=== PATIENT | female | born 1965 | race African-American/Black ===

== ENCOUNTER 2016-06-18 21:35 | Emergency (ER) | payer OTHER ==
[2016-06-18 21:45] VITALS: BP 149/92
--- NOTE | 2016-06-18 22:05 | PROVIDER DOCUMENTATION ---
HPI-Musculoskeletal Pain/Inj - GENERAL Source: patient - HX OF PRESENT ILLNESS-MUSKULOSKELTAL Quality of Pain: reports: aching Severity in ED: moderate Onset/Duration: this afternoon Timing: still present Modifying Factors: improves with: nothing Any recent injury?: No Locality of Occurance: Home Similar Symptoms Previously?: Yes - LOWER EXTREMITY PAIN/INJURY Lower Extremities Pain: knee: left Associated Symptoms: reports: denies symptoms <Amy Diaz - Last Filed: 06/18/16 22:29> <Truman Cameron - Last Filed: 06/18/16 22:32> - GENERAL Chief Complaint: Extremity Pain Stated Complaint: BLOOD CLOT SX IN LEG Time Seen by Provider: 06/18/16 21:53 - HX OF PRESENT ILLNESS-MUSKULOSKELTAL Nature of Presenting Problem: 50 Y/O F presents to ED with extremity pain. Pt c/o of left leg pain in the back of her knee stated that she has a hx of blood clots. Stated last September she was hospitalized with a blood clot in her leg that broke off and traveled to her lung. States that she drove to [place] 2 weeks ago. (Amy Diaz) Review of Systems - Adult - REVIEW OF SYSTEMS - ADULT Constitutional: denies: chills, fever Eyes: reports: no symptoms reported Ears, Nose, Mouth & Throat: reports: no symptoms reported Cardiovascular: reports: no symptoms reported Respiratory: reports: no symptoms reported Gastrointestinal: denies: abdominal pain, diarrhea, nausea, vomiting Genitourinary: reports: no symptoms reported Musculoskeletal: reports: muscle aches. denies: back pain Integumentary: reports: no symptoms reported Neurological: reports: no symptoms reported Psychiatric: reports: no symptoms reported Endocrine: reports: no symptoms reported Hematologic/Lymphatic: reports: no symptoms reported Allergic/Immunologic: reports: no symptoms reported All Other Systems: Reviewed and Negative <Amy Diaz - Last Filed: 06/18/16 22:29> Past History - Adult - PAST MEDICAL HISTORY-ADULT Review of Records: reports: Old Records Reviewed, Nursing Assessment Review, Medications Reviewed, Social history reviewed & non-contributory. Major Childhood Illnesses: reports: denies history Cardiovascular: reports: HTN Respiratory: reports: denies history Gastrointestinal: reports: denies history Obstetrical/Gynecological: reports: denies history Genitourinary: reports: denies history Musculoskeletal: reports: denies history Neurological: reports: headaches/migraines, Seizures/Epilepsy (hx) Endocrine/Immune: reports: denies history Other Conditions: reports: denies history - PRIOR SURGERIES/PROCEDURES Surgical/Procedure History: reports: hysterectomy, gastric bypass - IMMUNIZATION STATUS Childhood Immunizations: See Nurse Assessment Flu Vaccine: See Nurse Assessment - FAMILY HISTORY Family History: reviewed, not pertinent - SOCIAL HISTORY Smoking: non-smoker Substance Use: none/never Alcohol Use Frequency: never Living Situation: family <Amy Diaz - Last Filed: 06/18/16 22:29> Physical Exam-Injury Related - Physical Exam-Injury Related General Appearance: appears well, alert, no apparent distress Eyes: PERRL/EOMI, pink conjunctivae, fundi clear, no AV nicking Head, Ears, Nose, Mouth & Throat: normocephalic/atraumatic, moist mucous membranes, normal ENT inspection, TMs normal, pharynx normal Neck: non-tender, full range of motion, supple Respiratory: chest non-tender, lungs clear, normal breath sounds Cardiovascular: normal peripheral pulses, regular rate, rhythm Abdominal Exam: normal bowel sounds, non tender, soft Lymphatic: no adenopathy Back Exam: normal inspection, no CVA tenderness, no vertebral tenderness Extremity: normal range of motion, non-tender, normal gait Integumentary: normal color, warm/dry Psych/Mental Status: normal mood/affect, normal thought content, normal thought process, oriented x 3 - Glascow Coma Score Best Eye Response ([place]): (4) open spontaneously Best Verbal Response ([place]): (5) oriented Best Motor Response ([place]): (6) obeys commands [place] Total: 15 <Amy Diaz - Last Filed: 06/18/16 22:29> Progress <Amy Diaz - Last Filed: 06/18/16 22:29> <Truman Cameron - Last Filed: 06/18/16 22:32> - PLAN OF CARE/RESULTS Progress/Plan/Lab Results: Laboratory Tests 06/18/16 22:00 D-Dimer 0.31 Orders Category Date Time Status D-DIMER PL [COAG] Stat Lab 06/18/16 22:00 Completed Vital Signs - 24 hr 06/18/16 21:42 Temperature 98 F Pulse Rate 87 Respiratory 18 Rate Blood Pressure 149/92 O2 Sat by Pulse 100 Oximetry (Amy Diaz) Departure <Amy Diaz - Last Filed: 06/18/16 22:29> - Departure Time of Disposition Order: 22:31 Certified Medical Emergency: Emergent <Truman Cameron - Last Filed: 06/18/16 22:32> - Departure DIAGNOSIS: Pain of left calf Disposition: HOME 01 Condition: Stable Additional Instructions: call dr light in am ED Follow Up Instructions: You have been treated by a care provider in the Emergency Department. These instructions are being provided to you so you can have an understanding of how to care for yourself upon discharge. Upon discharge from the Emergency Department, you are responsible for making arrangements for follow-up care by a physician of your choice. Take all prescribed medications as directed. Return to the Emergency Department immediately for any new or worsening symptoms. You may call the Physician Referral phone number at [phone] to obtain a list of Physicians who are taking new patients. Attestation - Scribe Verification/Attestation Scribe:: Amy Diaz Acting as Scribe for:: Truman Cameron Scribe documention review:: This chart was documented by a scribe and accurately reflects the service the provider performed and the decisions made by the provider. <Amy Diaz - Last Filed: 06/18/16 22:29> Physician Attestation
[2016-06-18] MEDS ORDERED: XARELTO PO ONE (22:29)
[2016-06-18] MEDS ORDERED: TORADOL PO ONE (22:30)
[2016-06-18] MEDS ORDERED: XARELTO ONE (22:39)
== END 2016-06-18 22:46 | disposition home or self-care (01) ==
LOC: P.ED 21:35
DX: M79.662 Pain in left lower leg (principal); M25.562 Pain in left knee; M79.1 Myalgia; I10 Essential (primary) hypertension; Z86.718 Personal history of other venous thrombosis and embolism; Z98.84 Bariatric surgery status
CPT/HCPCS: 85379